=== PATIENT | male | born 1965 | race African-American/Black ===

== ENCOUNTER 2018-02-07 19:40 | Inpatient (IN) | payer OTHER ==
[~2018-02-07] VITALS: Ht 172.7 cm; Wt 72.1 kg
[~2018-02-07 19:40] MED LIST: ABAC1TAB3 PO; ACET-907 PO; D-ME118S12 PO; HYDR25TA4 PO; LISI40TA4 PO; NYST5ORA PO; RALT400T PO; RANI150T43 PO; SUMA50TA PO; WELLBUTRIN
[2018-02-07 20:00] VITALS: BP 154/95
[2018-02-07] MEDS ORDERED: IV NS 0.9% 1,000 ML IV PRN (23:25)
[2018-02-07] MEDS ORDERED: MAG HYDROX/AL HYDROX/SIMETH 30 ML UDC PO PRN (23:30)
[2018-02-07] MEDS ORDERED: MAGNESIUM HYDROXIDE 30 ML UDC PO PRN (23:30)
[2018-02-07] MEDS ORDERED: ONDANSETRON HCL/PF 4 MG/2 ML VIAL IVP PRN (23:30)
[2018-02-07] MEDS ORDERED: HYDROCODONE/APAP 5/325MG 1 EACH TABLET PO PRN (23:30)
[2018-02-07] MEDS ORDERED: Z GUARD REMEDY 2 OZ OINT TP PRN (23:30)
[2018-02-07] MEDS ORDERED: LORAZEPAM INJ 2 MG/ML VIAL IV PRN (23:30)
[2018-02-07] MEDS ORDERED: ZOLPIDEM TARTRATE 5 MG TABLET PO PRN (23:30)
[2018-02-07] MEDS ORDERED: ACETAMINOPHEN 325 MG TABLET PO PRN (23:30)
[2018-02-08] VITALS: BP 142/92
[2018-02-08 04:00] VITALS: BP 139/93
--- NOTE | 2018-02-08 06:22 | NUR ---
HOLISTIC NUTRITIONIST NOTES AWAKE & RESPONSIVE. NOT IN ANY DISTRESS. NO SOB NOTED. DENIES ANY PAIN OR DISCOMFORT AT THIS TIME. ON TELE SR @ 70 WITH IVF INFUSING WELL. CALL LIGHT WITHIN REACH. BED IN LOWEST POSITION. SR UP X 3 FOR SAFETY WITH BED ALARM ON. WILL ENDORSE TO NEXT SHIFT.
[2018-02-08 06:40] LABS: EOSINOPHILS % (AUTO) 1.1 % (0.0-6.0); HEMATOCRIT 35 % (39-51); HEMOGLOBIN 11.2 g/dL (13.5-17.5); LYMPHOCYTES # (AUTO) 1.6 /CMM (0.8-4.8); LYMPHOCYTES % (AUTO) 16.7 % (20.0-44.0); MEAN CORPUSCULAR HEMOGLOBIN 29 PG (26.0-33.0); MEAN CORPUSCULAR HGB CONC 32 g/dl (31.0-36.0); MEAN CORPUSCULAR VOLUME 92 fL (80-96); MONOCYTES # (AUTO) 0.3 /CMM (0.1-1.30); MONOCYTES % (AUTO) 3.2 % (2.0-12.0); NEUTROPHILS # (AUTO) 7.6 /CMM (1.8-8.9); PLATELET COUNT (AUTO) 297 /CMM (150-450); RDW COEFFICIENT OF VARIATION 13.2 (11.5-15.0); RED BLOOD CELL COUNT(AUTO) 3.79 MIL/uL (4.5-6.0); WHITE BLOOD COUNT (AUTO) 9.6 K/uL (4.3-11.0)
[2018-02-08 07:06] LABS: CALCIUM, SERUM 8.2 mg/dL (8.5-10.1); CREATININE 1.2 mg/dL (0.6-1.3); MAGNESIUM 1.7 mg/dL (1.8-2.4); POTASSIUM 3.8 mmol/L (3.5-5.1)
--- NOTE | 2018-02-08 07:25 | NUR ---
PRINT SHOP ASSISTANT NOTES PATIENT AWAKE, ALERT AND ORIENTED, VERBALLY RESPONSIVE AND RESPONDS TO VERBAL AND TACTILE STIMULI. BREATHING EVEN AND UNLABORED. NO SOB OR ACUTE DISTRESS NOTED. PATIENT DENIES ANY PAIN OR DISCOMFORT. NO CHANGES IN LOC NOTED AT THIS TIME. WILL CONTINUE TO MONITOR. BED LOCKED AND IN LOW POSITION. BILATERAL UPPER SIDE RAILS UP AND LOCKED. CALL LIGHT WITHIN EASY REACH
[2018-02-08 08:00] VITALS: BP 144/94
[2018-02-08] MEDS: LAMIVUDINE (150MG) 150 MG TABLET PO SCH (09:28)
[2018-02-08] MEDS: NYSTATIN (PYXIS) 500,000 UNIT/5 ML ORAL.SUSP PO SCH ×4 (09:28→21:06)
[2018-02-08] MEDS: HYDROCHLOROTHIAZIDE 25 MG TABLET PO SCH (09:28)
[2018-02-08] MEDS: RALTEGRAVIR POTASSIUM 400 MG TABLET PO SCH ×2 (09:29→16:04)
[2018-02-08] MEDS: Magnesium 1GM/D5W 100ML PREMIX 100 ML IV SCH ×2 (09:37→10:44)
[2018-02-08] MEDS: ABACAVIR SULFATE 300 MG TABLET PO SCH (10:57)
--- NOTE | 2018-02-08 11:40 | NUR ---
Social service consult requested by [facility] Inga Pickering for homelessness. Pt. si a 52 year old male who was admitted to [facility] for syncope and seizure. SW met with pt. bedside. Pt. is alert and oriented x 4. Pt. is cooperative and pleasant with SW during the assessment. Pt. states he resides at [address] in [place]. Pt. receives General Relief in the amount of $251/month and food stamps in the amount of $150 per month. SW inquired with pt. how does he afford to pay the rent. Pt. states he pays only $54 per month and his housing is through [employer]. 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 Pt. denies alcohol and drug use. Pt. uses marijuana about 2 to 3 days per week. Pt. also smokes 1 to 2 cigarettes per day. Pt. denies suicidal/homicidal ideations and visual/auditory hallucinations at this time. Pt. will require taxi transportation upon discharge. No other social service needs are required at this time. SW is available, if needed.
[2018-02-08 16:00] VITALS: BP 139/86
--- NOTE | 2018-02-08 19:25 | NUR ---
RN INITIAL NOTES: RECEIVED REPORT FROM KARL MARTIN, PT IN BED, AWAKE, A/O X3, ON RA RESPIRATION EVEN AND UNLABORED, IV ACCESS PATENT AND FLUSHING WELL, ON HL, PT REFUSED TO BE CONNECTED TO IVF AT THIS TIME, PT TOLERATING PO INTAKE WELL, BEEN EATING AND DRINKING, AND CONSTANTLY ASKING FOR FOOD PER REPORT. SUCTION SET UP SECURED. DISCUSSED PLAN OF CARE WITH THE PT. AWAITING NEURO CONSULT. SIDE RAILS PADDED. SAFETY PRECAUTIONS FOR FALL INITIATED, CALL LIGHT IN REACH, WILL CONTINUE MONITORING PT.
--- NOTE | 2018-02-08 19:50 | NUR ---
neuro consult: dr torres came to see the pt, with orders to give keppra 500mg q12hr, eeg for tomorrow, then mri brain wwo contrast
[2018-02-08 20:00] VITALS: BP 129/86
--- NOTE | 2018-02-08 20:26 | NUR ---
CONSENT FOR EEG AND MRI BRAIN WWO CONTRAST: DR DEL TORO, NEUROLOGIST RECOMMENDS EEG AND MRI FOR PT DUE TO SEIZURE EPISODE AND HIV, NEEDS CONSENT, EXPLAIN TO THE PT ABOUT THE IMPORTANCE RISK BENEFITS OF THE PROCEDURE, PT AGREE AND GIVES HIS FULL CONSENT FOR EEG AND MRI WWO CONTRAST, MEDICAL HISTORY PERFORMED AND SCANNED PT FOR METAL. CONSENT ATTACHED TO CHART. WILL BE NPO AFTER MIDNIGHT, PT AGREE FOR PREPARATION.
[2018-02-08] MEDS: LEVETIRACETAM (250 MG) 250 MG TABLET PO SCH (21:05)
--- NOTE | 2018-02-09 | NUR ---
RN NOTES: REMIND PT THAT HE WILL BE NPO AFTER MIDNIGHT, PT AGREE AND UNDERSTAND, CONNECTED TO IVF ORDERED
--- NOTE | 2018-02-09 03:00 | NUR ---
RN NOTES: PT REQUESTED TO BE DISCONNECTED FROM IVF, STATED HE DRINKS LOTS OF WATER DURING THE DAY, AND HE WILL DO THE SAME THING AFTER THE PROCEDURE, EDUCATION PROVIDED TO THE PT HE WAS NPO TEMPORARILY FOR MRI BRAIN WWO CONTRAST FOR THIS AM
[2018-02-09 06:19] LABS: BASOPHILS % (AUTO) 0.2 % (0.0-2.0); HEMATOCRIT 38 % (39-51); HEMOGLOBIN 12.2 g/dL (13.5-17.5); LYMPHOCYTES # (AUTO) 1.4 /CMM (0.8-4.8); MEAN CORPUSCULAR HEMOGLOBIN 30 PG (26.0-33.0); MEAN CORPUSCULAR HGB CONC 32 g/dl (31.0-36.0); MEAN CORPUSCULAR VOLUME 91 fL (80-96); MONOCYTES # (AUTO) 0.3 /CMM (0.1-1.30); MONOCYTES % (AUTO) 5.6 % (2.0-12.0); NEUTROPHILS # (AUTO) 3.9 /CMM (1.8-8.9); NEUTROPHILS % (AUTO) 66.2 % (43.0-81.0); PLATELET COUNT (AUTO) 328 /CMM (150-450); RDW COEFFICIENT OF VARIATION 13.3 (11.5-15.0); RED BLOOD CELL COUNT(AUTO) 4.12 MIL/uL (4.5-6.0); WHITE BLOOD COUNT (AUTO) 5.8 K/uL (4.3-11.0)
--- NOTE | 2018-02-09 06:42 | NUR ---
TEXTED DR. WHITFIELD FOR MRI APPROVAL.
--- NOTE | 2018-02-09 07:00 | NUR ---
RN CLOSING NOTES: PT IN BED, AWAKE, REMAINS A/O X3, ON NPO FOR EEG AND MRI BRAIN WWO CONTRAST TODAY, CONSENT SECURED, MRI CHECKLIST COMPLETED. AWAITING RESULT OF ECHO. IV ACCESS REMAINS PATENT AND FLUSHING WELL, INFUSING WITH NS AT 75ML/HR. VS REMAINS STABLE, NEEDS ATTENDED. SAFETY PRECAUTIONS FOR FALL REMAINS ENGAGED, CALL LIGHT IN REACH, WILL ENDORSE TO DAY RN FOR CONTINUITY OF CARE.
--- NOTE | 2018-02-09 07:27 | NUR ---
MS RN OPENING NOTES RECEIVED PATIENT IN BED AWAKE AND WATCHING TV. A/O X3-4. RESPONSIVE TO VERBAL AND TACTILE STIMULI, DENIES PAIN OR DISCOMFORTS VOICED AT THIS TIME. PT FOR MRI OF BRAIN WWO, NPO MAINTAINED. ON ROOM AIR, BREATHING EVEN AND UNLABORED. IV ACCESS ON LEFT AC INTACT AND PATENT, IVF OF NS @ 75ML/HR INFUSING, NO SWELLING OR INFILTRATION NOTED AT SITE. SAFETY MEASURES IN PLACE. HOB ELEVATED. BED LOCKED AND IN LOW POSITION WITH BILATERAL UPPER SIDE RAILS UP AND LOCKED. CALL LIGHT WITHIN EASY REACH. WILL CONTINUE TO MONITOR.
[2018-02-09 08:00] VITALS: BP 105/59
[2018-02-09] MEDS: LAMIVUDINE (150MG) 150 MG TABLET PO SCH (09:00)
[2018-02-09] MEDS: RALTEGRAVIR POTASSIUM 400 MG TABLET PO SCH (09:00)
[2018-02-09] MEDS: HYDROCHLOROTHIAZIDE 25 MG TABLET PO SCH (09:00)
[2018-02-09] MEDS: ABACAVIR SULFATE 300 MG TABLET PO SCH (09:00)
[2018-02-09] MEDS: LEVETIRACETAM (250 MG) 250 MG TABLET PO SCH (09:00)
--- NOTE | 2018-02-09 09:45 | NUR ---
RN NOTES PATIENT'S P.O. MEDS THIS MORNING NOT GIVEN, PT IS NPO BECAUSE MRI OF BRAIN WITH CONTRAST WILL BE DONE TODAY. PT IS AWARE.
[2018-02-09] MEDS: NYSTATIN (PYXIS) 500,000 UNIT/5 ML ORAL.SUSP PO SCH ×2 (09:50→13:17)
--- NOTE | 2018-02-09 11:08 | NUR ---
RN NOTES PATIENT PICK-UP BY ANALYTICAL CHEMISTRY TEACHER VIA WHEELCHAIR GOING TO MRI TRAILER FOR MRI OF BRAIN WITH CONTRAST.
[2018-02-09] MEDS ORDERED: GADODIAMIDE 5 MMOL/10 ML VIAL IJ ONE (11:45)
[2018-02-09] MEDS ORDERED: GADODIAMIDE 2.5 MMOL/5 ML VIAL IJ ONE (11:45)
[2018-02-09] MEDS ORDERED: LEVE250T2 PO (11:45)
--- NOTE | 2018-02-09 16:21 | NUR ---
RN NOTES PATIENT DISCHARGED HOME I STABLE CONDITION. A/O X4. VERBALLY RESPONSIVE WITH NO C/O PAIN OR DISCOMFORTS DURING DISCHARGE. V/S TAKEN AND RECORDED. SKIN IS INTACT. PT HAD NEGATIVE MRI OF BRAIN. EEG DONE AND PT AWARE THAT HE WILL FOLLOW-UP RESULTS TOMORROW OR MONDAY. ALL BELONGINGS ACCOUNTED FOR AND SIGNED FORM. IV ACCESS REMOVED WITH NO BLEEDING NOTED. HEALTH TEACHINGS AND DISCHARGE INSTRUCTIONS GIVEN/EXPLAINED AND PT VERBALIZED UNDERSTANDING. TEACHING ON SMOKING CESSATION GIVEN, PT UNDERSTAND RISKS. $5.25 TAKEN FROM NURSE PATCHER [employer] AND [facility] PT LEFT UNIT AT 1615 VIA WHEELCHAIR IN NO ACUTE SIGNS OF DISTRESS ACCOMPANIED BY AUTOMOTIVE SERVICE WRITER TO IGGY. PT SAID THAT HE WILL GO TO [address], [address], [place]. [id number]. AND CHARGE NURSE AWARE OF DISCHARGE.
== END 2018-02-09 16:11 | disposition home or self-care (01) | DRG 53 ==
LOC: TELE 20:30 → MED 02-08 09:41
DX: R56.9 Unspecified convulsions (principal); E83.42 Hypomagnesemia; I10 Essential (primary) hypertension; D64.9 Anemia, unspecified; F32.9 Major depressive disorder, single episode, unspecified; F12.90 Cannabis use, unspecified, uncomplicated; F17.200 Nicotine dependence, unspecified, uncomplicated
CPT/HCPCS: 36415; 70553-TC; 71045-TC; 80048-TC; 80061-TC; 83735-TC; 84100-TC; 85025-TC; 87081-TC; 93307-TC; 95819-TC; J3475; J7030